=== PATIENT | male | born 1935 | race Caucasian/White ===

== ENCOUNTER → 2021-08-07 | Outpatient (CLI) | payer MEDICARE, OTHER | LOC: KOH-I 08:24 | DX: I63.411 Cerebral infarction due to embolism of right middle cerebral artery (principal); I25.10 Atherosclerotic heart disease of native coronary artery without angina pectoris; I10 Essential (primary) hypertension | CPT/HCPCS: 70450 ==

== ENCOUNTER 2022-05-01 18:42 | Emergency (ER) | payer MEDICARE, OTHER | END 2022-05-01 19:50 | disposition home or self-care (01) | LOC: ER1 18:42 | DX: L76.21 Postprocedural hemorrhage of skin and subcutaneous tissue following a dermatologic procedure (principal); I48.91 Unspecified atrial fibrillation; Z86.73 Personal history of transient ischemic attack (TIA), and cerebral infarction without residual deficits; Z85.828 Personal history of other malignant neoplasm of skin | CPT/HCPCS: 99283 ==